=== PATIENT | female | born 1955 | race Two or more races ===

== ENCOUNTER 2017-11-07 12:26 | Emergency (ER) | payer OTHER ==
[~2017-11-07] VITALS: Ht 149.9 cm; Wt 77.1 kg
[2017-11-07 12:35] VITALS: BP 169/76
[2017-11-07] MEDS ORDERED: NKM (12:38)
[2017-11-07] MEDS ORDERED: TYLENOL EXTRA500 MG ORAL (13:05)
--- NOTE | 2017-11-07 13:05 | Emergency Room Report ---
History of Present Illness General Chief Complaint: Head Injury Source: Patient Present Illness HPI 62-year-old female patient presents ER complaining of head injury few hours ago. 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 States she took 2 Tylenol after that time, does not know the dosage. Reports that she did not lose consciousness, no vision changes or photophobia, no vertigo or dizziness. Denies loss of consciousness. Reports that she has a small amount of swelling on her forehead and continued pain so she decided to come to the ER. Denies fever, chest pain, shortness of breath, abdominal pain. Denies ground level fall. Allergies: Coded Allergies: No Known Allergies (Unverified , 11/07/17) Patient History Past Medical History: see triage record Reviewed Nursing Documentation: PMH: Agreed; PSxH: Agreed Nursing Documentation-PMH Past Medical History: No Stated History Review of Systems All Other Systems: negative except mentioned in HPI Physical Exam Vital Signs Date Time Temp Pulse Resp B/P (MAP) Pulse Ox O2 Delivery O2 Flow Rate FiO2 11/07/17 12:33 97.5 80 18 169/76 98 Room Air 97.5 Sp02 EP Interpretation: reviewed, normal General Appearance: well appearing, no apparent distress, alert, GCS 15, non- toxic Head: normocephalic, other - left lateral forehead near the hairline: 1 cm area of mild swelling with slight ecchymosis, no open wound or drainage, no skull depression, negative Michaels sign, negative raccoon eyes Eyes: bilateral eye normal inspection, bilateral eye PERRL, bilateral eye EOMI ENT: hearing grossly normal, normal pharynx, no angioedema, normal voice, TMs + canals normal - no hemotympanum bilaterally, uvula midline, moist mucus membranes Neck: full range of motion Respiratory: lungs clear, normal breath sounds, no rhonchi, no respiratory distress, no accessory muscle use, no wheezing, speaking full sentences Cardiovascular #1: regular rate, rhythm, no edema Musculoskeletal: back normal, digits/nails normal, gait/station normal, normal range of motion, non-tender Neurologic: alert, oriented x3, responsive, carbonation tester III-XII nml as tested, motor strength/tone normal, SLR negative, sensory intact, cerebellar normal, normal gait, speech normal Psychiatric: mood/affect normal Skin: no rash Medical Decision Making PA Attestation Dr. Gray is my supervising Physician whom patient management has been discussed with. Diagnostic Impression: Primary Impression: Acute head injury ER Course Pt presents to ED c/o head trauma. DDX considered but are not limited to laceration, abrasion, contusion, cellulitis, ICH, skull fracture, concussion. no loss of consciousness, no amnesia, no vomiting or somnolence,low suspicion for concussion. VITAL SIGNS are WNL, patient is afebrile Ordered pain medication. ED INTERVENTIONS: PE small contusion noted on left lateral forehead, negative for raccoon eyes, negative Michaels sign, no hemotympanum, no skull depression. Cranial nerves intact as tested. no focal neuro deficits. Patient does not require CT head at this time. due to no loss of consciousness vomiting, phonophobia or photophobia. Does not require head dressing at this time. Will provide Patient with dose of Tylenol. Advised patient to continue taking Tylenol for relief of pain and apply ice to affected area to help with swelling symptoms. ER precautions given, return to ER for new or worsening of symptoms. Workmen's Compensation paperwork completed. Patient OK for discharge to home. Patient resting comfortably, in no acute distress, nontoxic appearing. DISCHARGE: Rx provided for Tylenol At this time pt is stable for d/c to home. Patient resting comfortably, in no acute distress, nontoxic appearing, talking without difficulty. Will provide with patient care instructions and any necessary prescriptions. Patient to take medication as instructed. Care plan and follow-up instructions provided. Patient questions asked and answered. Patient reports understanding and agreement to treatment plan. ER precautions given. Patient instructed to return to ER immediately for any new or worsening of symptoms including but not limited to vision loss, intractable vomiting, worsening of CASE, focal neuro deficits. - Please note that this Emergency Department Report was dictated using [employer] technology software, occasionally this can lead to erroneous entry secondary to interpretation by the dictation equipment. Last Vital Signs Date Time Temp Pulse Resp B/P (MAP) Pulse Ox O2 Delivery O2 Flow Rate FiO2 11/07/17 12:35 97.5 86 18 169/76 98 Room Air 97.5 Disposition: HOME, SELF-CARE Condition: Stable Scripts Acetaminophen* (TYLENOL EXTRA STRENGTH*) 500 Mg Tablet 500 MG ORAL Q8H PRN for Prn Headache/Temp > 101, #30 TAB 0 Refills Prov: Sidney Yang 11/07/17 Patient Instructions: Head Injury, Adult, [id number] Additional Instructions: Follow up with primary care physician in 1 - 2 days. If you experience loss of consciousness, vision loss or intractable vomiting, return to ED immediately. Avoid screen time. Drink plenty of fluids. Avoid alcohol/drug use, rest. Take medications as directed. Patient questions asked and answered. ER precautions given, patient instructed to return to ER immediately for any new or worsening of symptoms. Sidney Yang Nov 07, 2017 13:05
[2017-11-07] MEDS ORDERED: Acetaminophen 500mg (ES) tab ORAL ONE (13:15)
[2017-11-07 13:17] VITALS: BP 169/76
== END 2017-11-07 13:17 | disposition home or self-care (01) ==
LOC: EMR 13:05
DX: S09.90XA Unspecified injury of head, initial encounter (principal); W22.01XA Walked into wall, initial encounter; Y93.F1 Activity, caregiving, bathing; Y92.121 Bathroom in nursing home as the place of occurrence of the external cause; Y99.8 Other external cause status
CPT/HCPCS: 99283